=== PATIENT | male | born 1975 | race Two or more races ===

== ENCOUNTER 2021-12-15 12:19 | Inpatient (IN) | payer SELFPAY ==
[~2021-12-15] VITALS: Ht 180.3 cm; Wt 61.2 kg
--- NOTE | 2021-12-15 12:30 | NUR ---
IV CANNULA G18 INSERTED ON RIGHT AC. BLOOD DRAWN AND SENT TO LAB
[2021-12-15] MEDS ORDERED: MORPHINE SULFATE INJ 2 MG/ML DISP.SYRIN IV ONE (13:00)
[2021-12-15] MEDS ORDERED: IV NS 0.9% 1,000 ML BAG IV ONE (13:00)
[2021-12-15] MEDS ORDERED: ACETAMINOPHEN ES 500 MG TABLET PO ONE (13:00)
[2021-12-15] MEDS ORDERED: ONDANSETRON HCL/PF 4 MG/2 ML VIAL IVP ONE (13:00)
--- NOTE | 2021-12-15 13:00 | NUR ---
WHEELED PATIENT TO CT DEPT
[2021-12-15 13:11] LABS: HEMATOCRIT 47 % (39-51); HEMOGLOBIN 16.2 g/dL (13.5-17.5); LYMPHOCYTES # (AUTO) 0.9 K/uL (0.8-4.8); LYMPHOCYTES % (AUTO) 11.5 % (20.0-44.0); MEAN CORPUSCULAR HGB CONC 35 g/dl (31.0-36.0); MEAN CORPUSCULAR VOLUME 91 fL (80-96); MONOCYTES # (AUTO) 0.6 K/uL (0.1-1.30); MONOCYTES % (AUTO) 7.7 % (2.0-12.0); NEUTROPHILS # (AUTO) 6.3 K/uL (1.8-8.9); NEUTROPHILS % (AUTO) 80.8 % (43.0-81.0); PLATELET COUNT (AUTO) 290 K/uL (150-450); WHITE BLOOD COUNT (AUTO) 7.8 K/uL (4.3-11.0)
[2021-12-15] MEDS ORDERED: ONDANSETRON HCL/PF 4 MG/2 ML VIAL ONE (13:11)
[2021-12-15] MEDS ORDERED: ACETAMINOPHEN ES 500 MG TABLET ONE (13:11)
[2021-12-15] MEDS ORDERED: MORPHINE SULFATE INJ 4 MG/ML DISP.SYRIN ONE (13:11)
[2021-12-15 13:12] LABS: ALBUMIN 4.4 g/dL (3.4-5.0); BILIRUBIN,DIRECT 0.3 mg/dL (0.0-0.2); BILIRUBIN,TOTAL 1.5 mg/dL (0.2-1.0); CALCIUM, SERUM 9.9 mg/dL (8.5-10.1); TOTAL PROTEIN, SERUM 8.4 g/dL (6.4-8.2)
[2021-12-15 13:18] LABS: POTASSIUM 2.3 mmol/L (3.5-5.1)
--- NOTE | 2021-12-15 13:24 | NUR ---
MEDS GIVEN. 0.9NS 1L BOLUS STARTED. END TIME 1355H
--- NOTE | 2021-12-15 13:54 | NUR ---
URINE COLLECTED, GIVEN TO CAROL [employer] STUDIES PROFESSOR.
[2021-12-15 14:22] LABS: BILIRUBIN,URINE NEGATIVE (NEGATIVE); COLOR,URINE YELLOW (YELLOW); LEUKOCYTE ESTERASE ,URINE NEGATIVE (NEGATIVE); NITRITE, URINE NEGATIVE (NEGATIVE); PH,URINE 7.5 (5.0-8.0); PROTEIN,URINE 30 mg/dl (NEGATIVE); UGLUCOSE NEGATIVE (NEGATIVE); UROBILINOGEN,URINE 0.2 EU/dL (0.2)
[2021-12-15 14:35] LABS: RBC,URINE 0-2 /HPF (0-2); WBC,URINE 0-2 /HPF (0-3)
[2021-12-15 14:36] LABS: BACTERIA,URINE RARE /HPF (None Seen); CALCIUM CARBONATE CRYSTALS,UR None Seen /HPF (None Seen); CALCIUM OXALATE CRYSTALS,UR None Seen /HPF (None Seen); CALCIUM PHOSPHATE CRYSTALS,UR None Seen /HPF (None Seen); COARSE GRANULAR CASTS,URINE None Seen /LPF (None Seen); CYSTINE CRYSTALS,URINE None Seen /HPF (None Seen); FATTY CASTS,URINE None Seen /LPF (None Seen); FINE GRANULAR CASTS,URINE None Seen /LPF (None Seen); HYALINE CASTS, URINE None Seen /LPF (None Seen); MUCUS,URINE None Seen /LPF (None Seen); OTHER CRYSTALS,URINE None Seen /HPF (None Seen); RED BLOOD CELL CASTS,URINE None Seen /LPF (None Seen); SPERM,URINE None Seen /HPF (None Seen); SQUAMOUS EPITHELIAL CELL,UR RARE /HPF (None Seen); TRICHOMONAS,URINE None Seen /HPF (None Seen); TRIPLE PHOSPHATE CRYSTAL,UR None Seen /HPF (None Seen); TYROSINE CRYSTAL,URINE None seen /HPF (None Seen); URIC ACID CRYSTALS,URINE None Seen /HPF (None Seen); URINE AMORPHOUS PHOSPHATES None Seen /HPF (None Seen); URINE AMORPHOUS URATE None Seen /HPF (None Seen); WAXY CASTS,URINE None Seen /LPF (None Seen); YEAST,URINE None Seen /HPF (None Seen)
[2021-12-15] MEDS ORDERED: IV NS 0.9% 1,000 ML IV ONE (15:00)
[2021-12-15] MEDS ORDERED: POTASSIUM CHLORIDE 20 MEQ TAB.PRT.SR PO ONE ×2 (15:00→15:11)
[2021-12-15] MEDS ORDERED: POTA10CA43 PO (15:13)
[2021-12-15] MEDS ORDERED: PANT20TA2 PO (15:13)
[2021-12-15] MEDS ORDERED: ONDA4TAB5 PO (15:13)
[2021-12-15] MEDS ORDERED: POTASSIUM CL. PREMIX PERIPHER. 100 ML ONE (15:19)
[2021-12-15] MEDS: POTASSIUM CL. PREMIX PERIPHER. 50 ML IV SCH ×2 (15:30→18:00)
[2021-12-15] MEDS ORDERED: METOCLOPRAMIDE HCL 10 MG/2 ML VIAL IV ONE (15:30)
[2021-12-15] MEDS ORDERED: METOCLOPRAMIDE HCL 10 MG/2 ML VIAL ONE (15:32)
--- NOTE | 2021-12-15 18:00 | NUR ---
POTASSIUM INFUSION, ORAL REPLACEMENT FINISHED. PATIENT STILL FEELS NAUSEATED AND IN PAIN. DR COLINDRES MADE AWARE
--- NOTE | 2021-12-15 19:39 | NUR ---
COVID SWAB SENT TO LAB
[2021-12-15] MEDS ORDERED: Z GUARD REMEDY 4 OZ OINT TP PRN (21:00)
[2021-12-15] MEDS ORDERED: LORAZEPAM INJ 2 MG/ML VIAL IV PRN (21:00)
--- NOTE | 2021-12-15 21:13 | NUR ---
REPORT GIVEN TO NEDA MONTAÑO
--- NOTE | 2021-12-15 21:26 | NUR ---
PATIENT TRANSFERRED TO ROOM 312.
[2021-12-15 21:35] VITALS: BP 181/115
--- NOTE | 2021-12-15 21:35 | NUR ---
MS RADIOLOGICAL HEALTH SPECIALIST NOTES RECEIVED PATIENT FROM ER VIA STRETCHER; AMBULATORY, PLACED IN BED COMFORTABLY. BED IN LOWEST LOCKED POSITION. SIDE RAILS UP X2. CALL BUTTON AND TABLE WITHIN EASY REACH. COMPLAINED OF ABDOMINAL PAIN AND FEELS NAUSEATED. PLACED ON NPO ORDERED. SKIN ASSESSMENT DONE; INTACT. INVENTORY OF PATIENT'S BELONGINGS DONE AND SIGNED. WITH IV ACCESS AT RIGHT AC G#18; PATENT, INTACT, FLUSHES WELL AND SALINE LOCKED. VS TAKEN AND RECORDED FOLLOWS: BP-181/115 MMHG, MO-80 BPM, RR-20 BPM, TEMP-97.7, PULSE OX O2 SATURATION 96%. ON ROOM AIR, TOLERATING WELL. NO SOB NOTED. PATIENT ORIENTED TO THE ROOM AND UNIT. ABLE TO MAKE NEEDS KNOWN. WILL CONTINUE TO MONITOR
[2021-12-15 21:50] VITALS: BP 181/115
[2021-12-15] MEDS ORDERED: MAGNESIUM HYDROXIDE 30 ML UDC PO PRN (22:00)
[2021-12-15] MEDS: IV NS 0.9% 1,000 ML IV PRN (22:01)
[2021-12-15] MEDS: ONDANSETRON HCL/PF 4 MG/2 ML VIAL IVP PRN (22:02)
[2021-12-15] MEDS: MORPHINE SULFATE INJ 4 MG/ML DISP.SYRIN IV PRN (22:33)
--- NOTE | 2021-12-15 22:35 | NUR ---
MS RN NOTES COMPLAINED OF ABDOMINAL PAIN WITH SCALE OF 9/10, PRN MORPHINE 4MG 1ML GIVEN VIA IV WITH ORDERED AT [id number].
[2021-12-15] MEDS: ENOXAPARIN SODIUM 40 MG/0.4 ML DISP.SYRIN SQ SCH (23:09)
--- NOTE | 2021-12-16 00:36 | NUR ---
MS RN NOTES PATIENT'S BP 182/118 MMHG; DR. PREET THOMSON MADE AWARE, NO NEW ORDERS MADE.
[2021-12-16] MEDS: MORPHINE SULFATE INJ 4 MG/ML DISP.SYRIN IV PRN ×5 (02:48→20:22)
[2021-12-16] MEDS: ONDANSETRON HCL/PF 4 MG/2 ML VIAL IVP PRN ×2 (04:28→10:42)
[2021-12-16] MEDS: IV NS 0.9% 1,000 ML IV PRN ×2 (06:45→16:13)
--- NOTE | 2021-12-16 07:15 | NUR ---
MS RN CLOSING NOTES PATIENT IN BED, AWAKE, ALERT AND ORIENTED X2-3. ON ROOM AIR, WELL TOLERATED. BREATHING IS EVEN AND NONLABORED. WITH IV ACCESS ON RIGHT AC G#18 INFUSING WITH NS 1L AT 150ML/HR; INTACT AND PATENT. NEEDS ATTENDED. ENDORSED TO MORNING SHIFT FOR CONTINUITY OF CARE.
--- NOTE | 2021-12-16 07:29 | NUR ---
MS RN OPENING NOTES RECEIVED PT AWAKE IN BED, A/O X3, ABLE TO MAKE NEEDS KNOWN. ON RA, TOLERATING WELL. BREATHING UNLABORED AND NOT IN ANY SIGN OF DISTRESS. IV ACCESS IN RAC G #18, INTACT AND PATENT WITH NS RUNNING AT 150ML/HR. SAFETY MEASURES IN PLACE: BED AT LOWEST AND LOCKED POSITION, BED RAILS UPX2, CALL LIGHT WITHIN EASY REACH. WILL CONTINUE TO MONITOR PT.
[2021-12-16 07:31] LABS: BASOPHILS % (AUTO) 0.1 % (0.0-2.0); EOSINOPHILS % (AUTO) 0.1 % (0.0-6.0); HEMATOCRIT 44 % (39-51); HEMOGLOBIN 15.2 g/dL (13.5-17.5); LYMPHOCYTES # (AUTO) 1.1 K/uL (0.8-4.8); LYMPHOCYTES % (AUTO) 12.8 % (20.0-44.0); MEAN CORPUSCULAR HGB CONC 34 g/dl (31.0-36.0); MEAN CORPUSCULAR VOLUME 92 fL (80-96); MONOCYTES # (AUTO) 0.7 K/uL (0.1-1.30); MONOCYTES % (AUTO) 8.7 % (2.0-12.0); NEUTROPHILS # (AUTO) 6.7 K/uL (1.8-8.9); NEUTROPHILS % (AUTO) 78.3 % (43.0-81.0); PLATELET COUNT (AUTO) 261 K/uL (150-450); RED BLOOD CELL COUNT(AUTO) 4.81 MIL/uL (4.5-6.0); WHITE BLOOD COUNT (AUTO) 8.6 K/uL (4.3-11.0)
[2021-12-16 07:33] LABS: CALCIUM, SERUM 8.7 mg/dL (8.5-10.1); CREATININE 0.8 mg/dL (0.6-1.3); MAGNESIUM 2.2 mg/dL (1.8-2.4); PHOSPHORUS 2.5 mg/dL (2.5-4.9); POTASSIUM 3.1 mmol/L (3.5-5.1)
--- NOTE | 2021-12-16 07:55 | NUR ---
RN NOTES PT COMPLAINED OF ABDOMINAL PAIN, WITH PAIN SCALE LEVEL OF 9/10. MORPHINE 4MG GIVEN ORDERED PRN AT 0745. WILL MONITOR AND REASSESS PT.
[2021-12-16] MEDS: PANTOPRAZOLE 40 MG VIAL IV SCH (09:00)
[2021-12-16] MEDS: POTASSIUM CL. PREMIX PERIPHER. 50 ML IV SCH ×4 (09:46→13:05)
[2021-12-16] MEDS ORDERED: TEMAZEPAM 15 MG CAPSULE PO PRN (12:30)
[2021-12-16] MEDS: METOCLOPRAMIDE HCL 10 MG/2 ML VIAL IV SCH ×3 (13:19→23:34)
--- NOTE | 2021-12-16 19:20 | NUR ---
RN opening notes Pt is resting in bed comfortably. Pt is alert and orientedX3. On room air. No SOB. No S/S of distress noted. IV site at RAC# 18 is clean, intact and infusing well NS@ 150 ml/hr. NPO. Safety precautions is maintained. Bed at low position, brakes locked, side rails upX2, hob elevated and call light is within reach. Will continue to monitor.
--- NOTE | 2021-12-16 19:33 | NUR ---
MS RN CLOSING NOTES PATIENT ASLEEP IN BED, EASILY AWAKEN UPON CALL. A/O X3. ABLE TO MAKE NEEDS KNOWN. ON RA, TOLERATING WELL. BREATHING EVEN AND UNLABORED. NOT IN ANY SIGN OF RESPIRATORY DISTRESS. RAC IV ACCESS, INTACT AND PATENT, WITH NS RUNNING AT 150ML/HR. ALL NEEDS ATTENDED. SAFETY PRECAUTIONS IN PLACE: BED AT LOWEST AND LOCKED POSITION, SIDE RAILS UP X2, CALL LIGHT WITHIN REACH. ENDORSED TO NIGHT NURSE FOR CONTINUITY OF CARE.
[2021-12-16 20:00] VITALS: BP 165/112
--- NOTE | 2021-12-16 20:26 | NUR ---
RN notes Pt is complaining of pain on his abdomen 10/10 on pain scale and requesting pain meds. administered morphine 4 mg as ordered for pain. safety precautions is maintained. Will continue to monitor.
[2021-12-16] MEDS: ENOXAPARIN SODIUM 40 MG/0.4 ML DISP.SYRIN SQ SCH (20:29)
--- NOTE | 2021-12-16 20:29 | NUR ---
RN notes Pt refused lovenox. explained risks and benefits. Pt keep refusing. Will continue to monitor.
--- NOTE | 2021-12-16 21:47 | NUR ---
RN notes Pt is having insomnia and requesting a sleeping pill. administered restoril 15 mg/po/prn as ordered for sleeping. safety precautions is maintained. will continue to monitor.
[2021-12-17] MEDS: MORPHINE SULFATE INJ 4 MG/ML DISP.SYRIN IV PRN ×2 (00:40→05:52)
[2021-12-17] MEDS: IV NS 0.9% 1,000 ML IV PRN ×2 (05:38→17:48)
[2021-12-17 06:40] LABS: BASOPHILS % (AUTO) 0.2 % (0.0-2.0); EOSINOPHILS % (AUTO) 2.1 % (0.0-6.0); HEMATOCRIT 46 % (39-51); HEMOGLOBIN 16.2 g/dL (13.5-17.5); LYMPHOCYTES % (AUTO) 26.3 % (20.0-44.0); MEAN CORPUSCULAR HGB CONC 35 g/dl (31.0-36.0); MEAN CORPUSCULAR VOLUME 92 fL (80-96); MONOCYTES # (AUTO) 0.8 K/uL (0.1-1.30); MONOCYTES % (AUTO) 10.1 % (2.0-12.0); NEUTROPHILS # (AUTO) 4.7 K/uL (1.8-8.9); NEUTROPHILS % (AUTO) 61.3 % (43.0-81.0); PLATELET COUNT (AUTO) 286 K/uL (150-450); RED BLOOD CELL COUNT(AUTO) 5.03 MIL/uL (4.5-6.0); WHITE BLOOD COUNT (AUTO) 7.6 K/uL (4.3-11.0)
--- NOTE | 2021-12-17 06:50 | NUR ---
RN closing notes Pt is resting in bed comfortably. Pt is alert and orientedX3. On room air. No SOB. No S/S of distress noted. IV site at RAC# 18 is clean, intact and infusing well NS@ 150 ml/hr. Kept Pt NPO. Routine meds were given as ordered. Kept Pt clean, dry and comfortable. Safety precautions is maintained. Bed at low position, brakes locked, side rails upX2, hob elevated and call light is within reach. Will endorse to am nurse for PIERRE.
[2021-12-17 06:51] LABS: CALCIUM, SERUM 9.2 mg/dL (8.5-10.1); CREATININE 0.9 mg/dL (0.6-1.3); MAGNESIUM 2.2 mg/dL (1.8-2.4); PHOSPHORUS 2.5 mg/dL (2.5-4.9); POTASSIUM 2.9 mmol/L (3.5-5.1)
[2021-12-17] MEDS: METOCLOPRAMIDE HCL 10 MG/2 ML VIAL IV SCH ×3 (07:07→18:36)
--- NOTE | 2021-12-17 07:30 | NUR ---
MS RN OPENING NOTES RECEIVED PATIENT ON BED, RESTING AND A/O X4. ON ROOM AIR TOLERATING WELL. NO SOB NOTED. NOT IN DISTRESS. WITH NO COMPLAINTS OF PAIN AT THIS TIME. WITH COMPLAINTS OF NAUSEA, COMFORT MEASURES PROVIDED. TO GIVE MEDICATION FOR NAUSEA. WITH IV ACCESS AT RIGHT AC G18 WITH IVF NS AT 150ML/HR INFUSING WELL. SAFETY MEASURES IN PLACED. CALL LIGHT WITHIN REACH. BED ON LOWEST LOCKED POSITION, SIDE RAILS UP X2. WILL CONTINUE TO MONITOR.
[2021-12-17] MEDS: ONDANSETRON HCL/PF 4 MG/2 ML VIAL IVP PRN (08:29)
[2021-12-17] MEDS: PANTOPRAZOLE 40 MG VIAL IV SCH (08:29)
[2021-12-17] MEDS: POTASSIUM CL. PREMIX PERIPHER. 50 ML IV SCH ×6 (10:25→20:39)
--- NOTE | 2021-12-17 11:50 | NUR ---
RN NOTE SEEN BY DR. FERNANDEZ AND ORDERED PATIENT TO CHANGE DIET FROM NPO TO CLEAR LIQUIDS.
--- NOTE | 2021-12-17 19:20 | NUR ---
RN opening notes Pt is sitting in bed comfortably watching TV. Pt is alert and orientedX4. On room air. No SOB. No S/S of distress noted. IV site at RAC# 18 is clean, intact and infusing well NS@ 150 ml/hr. Safety precautions is maintained. Bed at low position, brakes locked, side rails upX2, hob elevated and call light is within reach. Will continue to monitor.
--- NOTE | 2021-12-17 19:30 | NUR ---
MS RN OPENING NOTES PATIENT ON BED, RESTING AND A/O X4. ON ROOM AIR TOLERATING WELL. NO SOB NOTED. NOT IN DISTRESS. WITH NO COMPLAINTS OF PAIN DISCOMFORT AT THIS TIME. WITH IV ACCESS AT RIGHT AC G18 WITH IVF NS AT 150ML/HR INFUSING WELL. 6 BAGS OF KCL 10MEQ 5 BAGS. ENDORSED REMAINING 1 BAG TO NEDA HINES. DUE MEDS GIVEN. SAFETY MEASURES IN PLACED. CALL LIGHT WITHIN REACH. BED ON LOWEST LOCKED POSITION, SIDE RAILS UP X2. WILL ENDORSE TO NEXT SHIFT FOR PIERRE.
[2021-12-17 20:00] VITALS: BP 157/109
[2021-12-17] MEDS ORDERED: ZOLPIDEM TARTRATE 10 MG TABLET PO PRN (20:00)
--- NOTE | 2021-12-17 20:00 | NUR ---
RN notes Pt is feeling anxious and requesting meds. Administered ativan 1 mg/iv push as ordered per Pt's request. safety precautions is maintained. will continue to monitor.
[2021-12-17] MEDS: ENOXAPARIN SODIUM 40 MG/0.4 ML DISP.SYRIN SQ SCH (20:39)
--- NOTE | 2021-12-17 21:30 | NUR ---
RN notes Pt is having insomnia and requesting a sleeping pil. administered ambien 10mg/po/prn as ordered for sleeping per Pt's request. safety precautions is maintained. will continue to monitor.
[2021-12-18] MEDS: METOCLOPRAMIDE HCL 10 MG/2 ML VIAL IV SCH ×4 (00:58→12:35)
--- NOTE | 2021-12-18 06:30 | NUR ---
RN closing notes Pt is resting in bed comfortably. Pt is alert and orientedX4. On room air. No SOB. No S/S of distress noted. IV site at RAC# 18 is clean, intact and SL. Pt refused IV fluids. Routine meds were given as ordered. Kept Pt clean, dry and comfortable. Safety precautions is maintained. Bed at low position, brakes locked, side rails upX2, hob elevated and call light is within reach. Will endorse to am nurse for PIERRE.
[2021-12-18 07:13] LABS: MAGNESIUM 2.4 mg/dL (1.8-2.4); POTASSIUM 3.1 mmol/L (3.5-5.1)
--- NOTE | 2021-12-18 07:30 | NUR ---
MS RN OPENING NOTES RECEIVED PATIENT ON BED, RESTING AND A/O X4. ON ROOM AIR TOLERATING WELL. NO SOB NOTED. NOT IN DISTRESS. WITH NO COMPLAINTS OF PAIN DISCOMFORT AT THIS TIME. WITH IV ACCESS AT RIGHT AC G18 SALINE LOCKED, PATENT AND INTACT. SAFETY MEASURES IN PLACED. CALL LIGHT WITHIN REACH. BED ON LOWEST LOCKED POSITION, SIDE RAILS UP X2. WILL CONTINUE TO MONITOR.
[2021-12-18 07:42] LABS: BASOPHILS % (AUTO) 0.2 % (0.0-2.0); EOSINOPHILS % (AUTO) 1.5 % (0.0-6.0); HEMATOCRIT 48 % (39-51); HEMOGLOBIN 16.4 g/dL (13.5-17.5); LYMPHOCYTES % (AUTO) 17.5 % (20.0-44.0); MEAN CORPUSCULAR HGB CONC 34 g/dl (31.0-36.0); MEAN CORPUSCULAR VOLUME 92 fL (80-96); MONOCYTES # (AUTO) 0.9 K/uL (0.1-1.30); MONOCYTES % (AUTO) 7.7 % (2.0-12.0); NEUTROPHILS # (AUTO) 8.2 K/uL (1.8-8.9); NEUTROPHILS % (AUTO) 73.1 % (43.0-81.0); PLATELET COUNT (AUTO) 279 K/uL (150-450); RED BLOOD CELL COUNT(AUTO) 5.17 MIL/uL (4.5-6.0); WHITE BLOOD COUNT (AUTO) 11.2 K/uL (4.3-11.0)
[2021-12-18 08:00] VITALS: BP 159/116
[2021-12-18 08:15] LABS: CALCIUM, SERUM 9.1 mg/dL (8.5-10.1)
[2021-12-18] MEDS: POTASSIUM CHLORIDE 20 MEQ TAB.PRT.SR PO SCH ×2 (09:57→11:10)
[2021-12-18] MEDS: PANTOPRAZOLE 40 MG VIAL IV SCH (09:57)
[2021-12-18] MEDS ORDERED: LISI2.5T2 PO (12:11)
--- NOTE | 2021-12-18 14:15 | NUR ---
MS PLATING ENGINEER NOTES PATIENT WAS SEEN BY DR. FERNANDEZ AND ORDERED PT FOR DISCHARGE TO HOME. DISCHARGE INSTRUCTION AND EDUCATION PROVIDED TO PATIENT AND EXPLAINED MEDICATIONS AND PRESCRIPTIONS. PATIENT VERBALIZED UNDERSTANDING. DISCHARGE FORM AND BELONGINGS LIST FORM SIGNED BY PATIENT. ALL BELONGINGS ACCOUNTED FOR. NAME WRIST BAND AND IV LINE REMOVED. PATIENT WAS ACCOMPANIED TO THE [facility] WITH GIRLFRIEND IN STABLE CONDITION AND LEFT VIA PRIVATE CAR. MD AND CHARGE NURSE ARE AWARE OF THE DISCHARGE.
== END 2021-12-18 14:15 | disposition home or self-care (01) | DRG 392 ==
LOC: ER 12:24 → MEDSG1 20:25 → MED 21:00
PROVIDERS: ADMIT Nurse Practitioner Acute Care; ATTEND Nurse Practitioner Acute Care
DX: K57.30 Diverticulosis of large intestine without perforation or abscess without bleeding (principal); E87.1 Hypo-osmolality and hyponatremia; E86.1 Hypovolemia; E86.0 Dehydration; E87.6 Hypokalemia; Z20.822 Contact with and (suspected) exposure to COVID-19; Z90.49 Acquired absence of other specified parts of digestive tract; Z98.890 Other specified postprocedural states; F12.10 Cannabis abuse, uncomplicated; R94.5 Abnormal results of liver function studies; Z79.899 Other long term (current) drug therapy
CPT/HCPCS: 36415; 80048-TC; 80076-TC; 81001; 83690-TC; 83735-TC; 84100-TC; 85025-TC; 85730-TC; 87081-TC; C9113; G0378; J1650; J2060; J2270; J2405; J2765; J3480; J7030; J7050